=== PATIENT | female | born 1965 | race Caucasian/White ===

== ENCOUNTER 2017-08-16 05:53 | Day surgery (SDC) | payer OTHER ==
[~2017-08-16] VITALS: Ht 152.4 cm; Wt 51.5 kg
[2017-08-16] MEDS ORDERED: NO MEDS (06:48)
[2017-08-16 06:52] VITALS: Ht 152.4 cm; Wt 51.5 kg
[2017-08-16 07:12] VITALS: BP 140/71; PULSE 56; RESP 18
[2017-08-16 08:08] VITALS: BP 124/73; PULSE 52; RESP 20
[2017-08-16] MEDS ORDERED: MIDAZOLAM 1 MG/ML 2 ML INJ ONE (08:11)
[2017-08-16] MEDS ORDERED: FENTAnyl 50 MCG/ML VIAL ONE (08:11)
--- NOTE | 2017-08-16 08:12 | OPPN ---
Date/Time of Note Date/Time of Note DATE: 08/16/17 TIME: 08:11 Operative Report Preoperative Diagnosis Screening Postoperative Diagnosis Internal hemorrhoids No colon neoplasm was identified Operation/Procedure Performed Colonoscopy Surgeon see signature line life enrichment assistant None Anesthesia: moderate sedation Estimated blood loss: none Transfusion Required none Specimen None Grafts/Implants none Complications none GABRIELA CLEMENS MD Aug 16, 2017 08:12
[2017-08-16 08:38] VITALS: BP 121/70; RESP 18
--- NOTE | 2017-08-17 13:21 | GILP ---
DATE OF PROCEDURE: NAME OF PROCEDURE: Colonoscopy. SURGEON: Gabriela Landis MD PREOPERATIVE DIAGNOSIS: Screening colonoscopy. POSTOPERATIVE DIAGNOSES: 1. Colonoscopy all the way to the cecum. 2. Internal hemorrhoids. 3. No colon neoplasm was identified. INDICATION FOR THE PROCEDURE: Ms. Felicia Krueger is a 52-year-old female patient who was schedule d for screening colonoscopy. The procedure and possible complications are well explained to the patient. The patient understood and consented to the procedure. DESCRIPTION OF PROCEDURE: Under the influence of fentanyl and Versed, the colonoscope was carefully introduced in the rectum and under direct vision, it was advanced all the way to the cecum. FINDINGS: The patient had internal hemorrhoids. No colon neoplasm was identified. She tolerated the procedure very well and there was no complication from the procedure. At the end of the procedure, she was awake with stable vital signs and she was discharged home to the care of h er family. IMPRESSION: Please see postoperative diagnosis. PLAN: Next screening colonoscopy in 10 years. Dictated By: GABRIELA JULES/MANNY Conf#: [id number] DID#: [id number]
== END 2017-08-16 11:33 | disposition home or self-care (01) ==
LOC: GIL 05:53
PROVIDERS: ATTEND Internal Medicine Gastroenterology
DX: Z12.11 Encounter for screening for malignant neoplasm of colon (principal); K64.8 Other hemorrhoids
CPT/HCPCS: 45378; J2250; J3010; Z7610